=== PATIENT | male | born 1965 | race Caucasian/White ===

== ENCOUNTER 2017-08-20 19:51 | Inpatient (IN) | payer OTHER ==
[~2017-08-20] VITALS: Ht 157.5 cm; Wt 63.0 kg
[2017-08-20 19:52] VITALS: O2SAT 95
[2017-08-20] MEDS ORDERED: IOHEXOL 350 MG/ML 10 ML VIAL (for RAD DIAG) IVCONTRAST ONE (19:52)
[2017-08-20] MEDS ORDERED: DIPHTH/TETANUS/ACEL PERTUSSIS (BOOSTER) 0.5 ML VIAL/PFS IM ONE (19:54)
[2017-08-20] MEDS ORDERED: MORPHINE SULFATE 4 MG/ML INJ ONE (19:57)
[2017-08-20] MEDS ORDERED: ONDANSETRON HCL 4 MG/2 ML VIAL ONE (19:57)
[2017-08-20] MEDS ORDERED: ceFAZolin 2 GM PREMIX 50 ML ONE (19:57)
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
[2017-08-20 20:14] LABS: AUTOMATED NEUTROPHIL # 11.1 TH/MM3 (1.8-7.7); BASOPHIL # 0.1 TH/MM3 (0-0.2); BASOPHIL % 0.6 % (0.0-2.0); EOSINOPHIL # 0.4 TH/MM3 (0-0.4); EOSINOPHIL % 2.7 % (0.0-4.0); HEMATOCRIT 45.4 % (39.0-51.0); HEMOGLOBIN 15.9 GM/DL (13.0-17.0); LYMPH % 23.8 % (9.0-44.0); LYMPHOCYTE # 3.9 TH/MM3 (1.0-4.8); MEAN CELL VOLUME 95.2 FL (80.0-100.0); MEAN CORPUSCULAR HEMOGLOBIN 33.4 PG (27.0-34.0); MEAN CORPUSCULAR HGB CONC 35.1 % (32.0-36.0); MEAN PLATELET VOLUME 7.8 FL (7.0-11.0); MONO % 4.7 % (0.0-8.0); MONOCYTE # 0.8 TH/MM3 (0-0.9); NEUT % 68.2 % (16.0-70.0); PLATELET COUNT 320 TH/MM3 (150-450); RED BLOOD COUNT 4.77 MIL/MM3 (4.50-5.90); WHITE BLOOD COUNT 16.2 TH/MM3 (4.0-11.0)
[2017-08-20 20:24] LABS: PROTHROMBIN TIME - PATIENT 10.4 SEC (9.8-11.6)
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
[2017-08-20 20:57] VITALS: O2SAT 98
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
[2017-08-20 21:23] VITALS: BP 137/78; PULSE 81; RESP 18; O2SAT 99
[2017-08-20 21:35] VITALS: BP 131/76; PULSE 81; RESP 18; O2SAT 97
[2017-08-20] MEDS ORDERED: LIDOCAINE 1%/EPINEPHrine 1:100,000 SOLN 50 ML VIAL ONE (21:50)
[2017-08-20] MEDS ORDERED: ONDANSETRON HCL 4 MG/2 ML VIAL IV PUSH PRN (22:00)
[2017-08-20] MEDS ORDERED: SODIUM CHLORIDE 0.9% FLUSH 10 ML FLUSH IV FLUSH PRN (22:00)
[2017-08-20] MEDS ORDERED: ACETAMINOPHEN 500 MG CPLT PO PRN (22:00)
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
[2017-08-20] MEDS ORDERED: AMPICILLIN-SULBACTAM INJ 3 GM in SODIUM CHLORIDE 0.9% INJ 100 ML IV ONE (22:45)
--- NOTE | 2017-08-20 22:52 | PD ---
Physical Exam Time Seen by Provider: 21:50 Data Data Last Documented VS Vital Signs Date Time Temp Pulse Resp B/P (MAP) Pulse Ox O2 Delivery O2 Flow Rate FiO2 08/20/17 21:35 81 18 131/76 (94) 97 Nasal Cannula 4.00 Orders Orders [id number] (Booster) Inj (Boostrix (08/20/17 19:54) Morphine Inj (Morphine Inj) (08/20/17 19:57) Cefazolin 2 Gm Premix (Ancef 2 Gm Premix (08/20/17 19:57) Ondansetron Inj (Zofran Inj) (08/20/17 19:57) I-Stat Profile (08/20/17 20:01) I-Stat Creatinine (08/20/17 20:01) Complete Blood Count With Diff (08/20/17 20:01) Prothrombin Time / Inr (Pt) (08/20/17 20:01) Act Partial Throm Time (Ptt) (08/20/17 20:01) Type And Screen (08/20/17 20:01) Alcohol (Ethanol) (08/20/17 20:01) Chest, Single Ap (08/20/17 20:01) Pelvis, Ap Only (Routine) (08/20/17 20:01) Ct Brain W/O Iv Contrast(Rout) (08/20/17 20:01) Ct Cerv Spine W/O Contrast (08/20/17 20:01) Ct Abd/Pel W Iv Contrast(Rout) (08/20/17 20:01) Ct Thorax/ Chest W Iv Contrast (08/20/17 20:01) Iv Access Insert/Monitor (08/20/17 20:01) Ecg Monitoring (08/20/17 20:01) Oximetry (08/20/17 20:01) Oxygen Administration (08/20/17 20:01) Finger (Paj5asa) (08/20/17 ) Shoulder, One View (08/20/17 ) Iohexol 350 Inj (Omnipaque 350 Inj) (08/20/17 19:52) Ct Facial Bones W/O Iv Cont (08/20/17 ) Complete Blood Count With Diff (08/21/17 00:00) Splinting (08/20/17 ) Consult Scientific Aide (08/20/17 ) Consult Orthopedic (08/20/17 ) Admit Order (Ed Use Only) (08/20/17 21:47) Labs Laboratory Tests Test 08/20/17 19:55 White Blood Count 16.2 TH/MM3 Red Blood Count 4.77 MIL/MM3 Hemoglobin 15.9 GM/DL Bedside Hemoglobin 15.6 G/DL Hematocrit 45.4 % Bedside Hematocrit 46.0 % Mean Corpuscular Volume 95.2 FL Mean Corpuscular Hemoglobin 33.4 PG Mean Corpuscular Hemoglobin Concent 35.1 % Red Cell Distribution Width 13.0 % Platelet Count 320 TH/MM3 Mean Platelet Volume 7.8 FL Neutrophils (%) (Auto) 68.2 % Lymphocytes (%) (Auto) 23.8 % Monocytes (%) (Auto) 4.7 % Eosinophils (%) (Auto) 2.7 % Basophils (%) (Auto) 0.6 % Neutrophils # (Auto) 11.1 TH/MM3 Lymphocytes # (Auto) 3.9 TH/MM3 Monocytes # (Auto) 0.8 TH/MM3 Eosinophils # (Auto) 0.4 TH/MM3 Basophils # (Auto) 0.1 TH/MM3 CBC Comment DIFF FINAL Differential Comment Prothrombin Time 10.4 SEC Prothromb Time International Ratio 1.0 RATIO Activated Partial Thromboplast Time 26.6 SEC Bedside Sodium 138 MMOL/L Bedside Potassium 4.4 MMOL/L Bedside Chloride 101 MMOL/L Bedside Blood Urea Nitrogen 26 MG/DL Bedside Creatinine 1.2 MG/DL Bedside Glucose 105 MG/DL Ethyl Alcohol Level 230 MG/DL [facility] Medical Record Reviewed: Yes Supervised Visit with CORI: Yes Narrative Course I was asked by Dr. Dukes to repair a laceration on this patient. Please see his note for further details. Procedures Procedure Narrative LACERATION LOCATION: Forehead LENGTH: 4 cm NUMBER OF STITCHES/MERNA: 5 buried, 15 simple are up-to-date REPAIR: The area of the laceration was prepped with Betadine and sterilely draped. The laceration was infiltrated with 1% lidocaine with epinephrine. The wound was copiously irrigated and explored without evidence of foreign body , tendon injury or neurovascular injury. The wound was closed using 5-0 Vicryl and 4-0 Prolene. This was a double layer repair. A sterile dressing was applied. The patient was advised to keep the dressing clean and dry. Patient tolerated the procedure well. Diagnosis Primary Impression: Multiple pelvic fractures Qualified Codes: S32.82XA - Multiple fractures of pelvis without disruption of pelvic ring, initial encounter for closed fracture Additional Impressions: Multiple facial bone fractures Qualified Codes: S02.92XA - Unspecified fracture of facial bones, initial encounter for closed fracture Spleen hematoma Qualified Codes: S36.029A - Unspecified contusion of spleen, initial encounter Laceration of forehead Qualified Codes: S01.81XA - Laceration without foreign body of other part of head, initial encounter Scripts No Active Prescriptions or Reported Meds Condition: Stable Mirlande Mitchell Aug 20, 2017 22:52
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
[2017-08-20] MEDS: SODIUM CHLORIDE 0.9% FLUSH 10 ML FLUSH IV FLUSH SCH (23:40)
[2017-08-20] MEDS: SODIUM CHLOR 0.9% 1000 ML INJ 1,000 ML IV SCH (23:40)
[2017-08-21] VITALS (19 sets, daily range): BP systolic 61–140; BP diastolic 42–92; PULSE 77–99; RESP 14–20; TEMP 94.4–99.6; O2SAT 92–100
[2017-08-21] MEDS ORDERED: ONDANSETRON HCL 4 MG/2 ML VIAL IV PUSH PRN (00:15)
[2017-08-21] MEDS ORDERED: MISCELLANEOUS NURSING INFORMATION XX SCH (00:15)
[2017-08-21] MEDS ORDERED: SENNOSIDES 8.6 MG TAB PO PRN (00:15)
[2017-08-21] MEDS ORDERED: SODIUM CHLORIDE 0.9% FLUSH 10 ML FLUSH IV FLUSH PRN (00:15)
[2017-08-21] MEDS ORDERED: MAGNESIUM HYDROXIDE SUSP 30 ML CUP PO PRN (00:15)
[2017-08-21] MEDS ORDERED: PHENYLEPHRINE INJ 160 MG in DEXTROSE 5% IN WATE 500 ML INJ 484 ML IV PRN ×2 (00:15)
[2017-08-21] MEDS ORDERED: CHLORHEXIDINE GLUCONATE 2 % 1 PACK (2 CLOTHS) TOP PRN (00:15)
[2017-08-21] MEDS ORDERED: BISACODYL 10 MG SUPP RECTAL PRN (00:15)
[2017-08-21] MEDS ORDERED: TERBUTALINE INJ 1 MG/ML AMP SQ PRN (00:15)
[2017-08-21] MEDS ORDERED: LACTULOSE SYRUP 20 GM/30 ML CUP PO PRN (00:15)
[2017-08-21] MEDS ORDERED: SODIUM CHLOR 0.9% 1000 ML INJ 1,000 ML IV ONE (00:15)
[2017-08-21 00:37] LABS: AUTOMATED NEUTROPHIL # 25.5 TH/MM3 (1.8-7.7); BASOPHIL # 0.1 TH/MM3 (0-0.2); BASOPHIL % 0.3 % (0.0-2.0); EOSINOPHIL # 0.1 TH/MM3 (0-0.4); EOSINOPHIL % 0.3 % (0.0-4.0); HEMATOCRIT 40.3 % (39.0-51.0); HEMOGLOBIN 13.7 GM/DL (13.0-17.0); LYMPH % 6.7 % (9.0-44.0); LYMPHOCYTE # 1.9 TH/MM3 (1.0-4.8); MEAN CELL VOLUME 96.7 FL (80.0-100.0); MEAN CORPUSCULAR HGB CONC 34.1 % (32.0-36.0); MEAN PLATELET VOLUME 7.5 FL (7.0-11.0); MONO % 3.8 % (0.0-8.0); MONOCYTE # 1.1 TH/MM3 (0-0.9); NEUT % 88.9 % (16.0-70.0); PLATELET COUNT 305 TH/MM3 (150-450); RED BLOOD COUNT 4.17 MIL/MM3 (4.50-5.90); RED CELL DISTRIBUTION WIDTH 13.1 % (11.6-17.2); WHITE BLOOD COUNT 28.7 TH/MM3 (4.0-11.0)
[2017-08-21 00:49] LABS: INTERNATIONAL NORMALIZED RATIO 1.1 RATIO
[2017-08-21] MEDS ORDERED: HEPARIN SODIUM - SQ 10,000 UNITS/ML VIAL ONE (01:30)
[2017-08-21 02:19] LABS: HEMATOCRIT 37.6 % (39.0-51.0); HEMOGLOBIN 12.6 GM/DL (13.0-17.0); MEAN CELL VOLUME 93.7 FL (80.0-100.0); MEAN CORPUSCULAR HEMOGLOBIN 31.4 PG (27.0-34.0); MEAN CORPUSCULAR HGB CONC 33.5 % (32.0-36.0); MEAN PLATELET VOLUME 7.2 FL (7.0-11.0); PLATELET COUNT 186 TH/MM3 (150-450); RED BLOOD COUNT 4.01 MIL/MM3 (4.50-5.90); RED CELL DISTRIBUTION WIDTH 14.7 % (11.6-17.2); WHITE BLOOD COUNT 19.7 TH/MM3 (4.0-11.0)
[2017-08-21] MEDS ORDERED: CALCIUM CHLORIDE 10% SOLN 1 GRAM/10 ML SYR ONE (02:24)
[2017-08-21 02:29] LABS: INTERNATIONAL NORMALIZED RATIO 1.2 RATIO; PROTHROMBIN TIME - PATIENT 11.7 SEC (9.8-11.6)
[2017-08-21] MEDS ORDERED: fentaNYL DRIP 250 ML IV PRN (03:15)
[2017-08-21] MEDS ORDERED: PROPOFOL 1000 MG/100 ML INJ 100 ML IV PRN (03:15)
[2017-08-21] MEDS ORDERED: DEXMEDETOMIDINE INJ 200 MCG in SODIUM CHLORIDE 0.9% INJ 50 ML IV PRN (03:15)
[2017-08-21] MEDS: CHLORHEXIDINE GLUCONATE 2 % 1 PACK (2 CLOTHS) TOP SCH (04:00)
[2017-08-21] MEDS ORDERED: SODIUM BICARBONATE 8.4% INJ 50 MEQ/50 ML SYR IV PUSH ONE (04:15)
[2017-08-21] MEDS: SODIUM CHLOR 0.9% 1000 ML INJ 1,000 ML IV SCH ×2 (05:59→15:15)
[2017-08-21 06:12] LABS: HEMATOCRIT 40.1 % (39.0-51.0); HEMOGLOBIN 14.1 GM/DL (13.0-17.0); MEAN CELL VOLUME 91.3 FL (80.0-100.0); MEAN PLATELET VOLUME 7.4 FL (7.0-11.0); PLATELET COUNT 184 TH/MM3 (150-450); RED CELL DISTRIBUTION WIDTH 14.8 % (11.6-17.2); WHITE BLOOD COUNT 18.4 TH/MM3 (4.0-11.0)
[2017-08-21 06:45] LABS: INTERNATIONAL NORMALIZED RATIO 1.1 RATIO; PROTHROMBIN TIME - PATIENT 10.8 SEC (9.8-11.6)
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
[2017-08-21] MEDS: CHLORHEXIDINE 0.12% (ORAL KIT) 15 ML CUP MT SCH ×2 (08:00→19:44)
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
[2017-08-21] MEDS: DOCUSATE SODIUM 50 MG/SENNA 8.6 MG TAB PO SCH ×2 (09:00→19:43)
[2017-08-21] MEDS: ARTIFICIAL TEARS OPTH SOLN 15 ML BTL EACH EYE SCH (09:00)
[2017-08-21] MEDS: SODIUM CHLORIDE 0.9% FLUSH 10 ML FLUSH IV FLUSH SCH ×3 (09:00→19:44)
[2017-08-21] MEDS: MUPIROCIN 2% OINT 1 APPLIC/GM SYR EACH NARE SCH ×2 (09:00→19:42)
[2017-08-21] MEDS: MULTIVITAMIN INJ 10 ML, THIAMINE INJ 100 MG, FOLIC ACID INJ 1 MG in SODIUM CHLORID 0.9%... IV SCH (10:06)
[2017-08-21] MEDS: FAMOTIDINE 20 MG/2 ML VIAL IV PUSH SCH ×2 (10:07→19:42)
[2017-08-21] MEDS ORDERED: PHENYLEPH/NS 1000 MCG/10 ML SYR IV ONE (12:00)
[2017-08-21] MEDS ORDERED: SODIUM CHLORID 0.9% 500 ML INJ 1,000 ML IV ONE (12:00)
[2017-08-21] MEDS ORDERED: ePHEDrine/NS 25 MG/5 ML SYRINGE IV ONE (12:00)
[2017-08-21] MEDS ORDERED: ROCURONIUM INJ 50 MG/5 ML SYRINGE IV PUSH ONE (12:00)
[2017-08-21] MEDS ORDERED: NORMOSOL R INJ 2,000 ML IV ONE (12:00)
[2017-08-21] MEDS ORDERED: SUCCINYLCHOLINE CHLORIDE 100 MG/5 ML SYRINGE IV PUSH ONE (12:00)
[2017-08-21] MEDS ORDERED: PROPOFOL 200 MG/20 ML AMP IV ONE (12:00)
[2017-08-21] MEDS ORDERED: LIDOCAINE HCL 1% PF 5 ML SYRINGE OTHER ONE (12:00)
[2017-08-21] MEDS: MORPHINE SULFATE 2 MG/ML INJ IV PUSH PRN ×3 (12:01→19:44)
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
[2017-08-21 12:50] LABS: HEMATOCRIT 41.1 % (39.0-51.0); HEMOGLOBIN 14.3 GM/DL (13.0-17.0); MEAN CELL VOLUME 91.7 FL (80.0-100.0); MEAN CORPUSCULAR HEMOGLOBIN 31.8 PG (27.0-34.0); MEAN CORPUSCULAR HGB CONC 34.7 % (32.0-36.0); MEAN PLATELET VOLUME 7.6 FL (7.0-11.0); PLATELET COUNT 187 TH/MM3 (150-450); RED BLOOD COUNT 4.48 MIL/MM3 (4.50-5.90); RED CELL DISTRIBUTION WIDTH 14.8 % (11.6-17.2); WHITE BLOOD COUNT 16.4 TH/MM3 (4.0-11.0)
[2017-08-21] MEDS: ACETAMINOPHEN/HYDROcodone 325 MG/7.5 MG TAB PO PRN ×2 (13:45→19:43)
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
[2017-08-21] MEDS: BACITRACIN TOP OINT 15 GM TUBE TOPICAL PRN (16:45)
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
[2017-08-22] VITALS (15 sets, daily range): BP systolic 123–144; BP diastolic 78–90; PULSE 92–108; RESP 16–20; TEMP 98.5–99.4; O2SAT 89–95
[2017-08-22] MEDS: ACETAMINOPHEN/HYDROcodone 325 MG/7.5 MG TAB PO PRN ×3 (00:40→13:27)
[2017-08-22] MEDS: MORPHINE SULFATE 2 MG/ML INJ IV PUSH PRN ×4 (00:41→21:06)
[2017-08-22] MEDS: SODIUM CHLOR 0.9% 1000 ML INJ 1,000 ML IV SCH ×2 (03:55→11:04)
[2017-08-22] MEDS: CHLORHEXIDINE GLUCONATE 2 % 1 PACK (2 CLOTHS) TOP SCH (04:00)
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
[2017-08-22 07:05] LABS: AUTOMATED NEUTROPHIL # 19.1 TH/MM3 (1.8-7.7); BASOPHIL # 0.2 TH/MM3 (0-0.2); BASOPHIL % 0.7 % (0.0-2.0); EOSINOPHIL # 0.3 TH/MM3 (0-0.4); EOSINOPHIL % 1.2 % (0.0-4.0); HEMATOCRIT 41.3 % (39.0-51.0); HEMOGLOBIN 14.5 GM/DL (13.0-17.0); LYMPH % 5.6 % (9.0-44.0); LYMPHOCYTE # 1.3 TH/MM3 (1.0-4.8); MEAN CELL VOLUME 92.5 FL (80.0-100.0); MEAN CORPUSCULAR HEMOGLOBIN 32.5 PG (27.0-34.0); MEAN CORPUSCULAR HGB CONC 35.2 % (32.0-36.0); MEAN PLATELET VOLUME 8.2 FL (7.0-11.0); MONO % 6.8 % (0.0-8.0); MONOCYTE # 1.5 TH/MM3 (0-0.9); NEUT % 85.7 % (16.0-70.0); PLATELET COUNT 198 TH/MM3 (150-450); RED BLOOD COUNT 4.46 MIL/MM3 (4.50-5.90); RED CELL DISTRIBUTION WIDTH 14.8 % (11.6-17.2); WHITE BLOOD COUNT 22.3 TH/MM3 (4.0-11.0)
[2017-08-22 07:32] LABS: ALBUMIN 2.5 GM/DL (3.4-5.0); ALT (GPT) 29 U/L (12-78); AST (GOT) 32 U/L (15-37); BICARBONATE 25.8 MEQ/L (21.0-32.0); BLOOD UREA NITROGEN 13 MG/DL (7-18); CHLORIDE 106 MEQ/L (98-107); CREATININE 0.73 MG/DL (0.60-1.30); GLOMERULAR FILTRATION RATE 113 ML/MIN (>89); GLUCOSE,RANDOM 94 MG/DL (74-106); SODIUM (NA) 139 MEQ/L (136-145)
[2017-08-22 07:34] LABS: ALKALINE PHOSPHATASE 78 U/L (45-117); TOTAL BILIRUBIN ADULT 0.7 MG/DL (0.2-1.0)
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
[2017-08-22] MEDS: CHLORHEXIDINE 0.12% (ORAL KIT) 15 ML CUP MT SCH ×2 (08:00→20:00)
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
[2017-08-22] MEDS: ARTIFICIAL TEARS OPTH SOLN 15 ML BTL EACH EYE SCH ×3 (09:00→17:23)
[2017-08-22] MEDS: FAMOTIDINE 20 MG/2 ML VIAL IV PUSH SCH ×2 (09:12→21:04)
[2017-08-22] MEDS: DOCUSATE SODIUM 50 MG/SENNA 8.6 MG TAB PO SCH ×2 (09:12→21:04)
[2017-08-22] MEDS: MULTIVITAMIN INJ 10 ML, THIAMINE INJ 100 MG, FOLIC ACID INJ 1 MG in SODIUM CHLORID 0.9%... IV SCH (09:12)
[2017-08-22] MEDS: MUPIROCIN 2% OINT 1 APPLIC/GM SYR EACH NARE SCH ×2 (09:12→21:04)
[2017-08-22] MEDS: SODIUM CHLORIDE 0.9% FLUSH 10 ML FLUSH IV FLUSH SCH ×3 (09:13→21:04)
[2017-08-22] MEDS ORDERED: FUROSEMIDE 40 MG/4 ML VIAL IV PUSH ONE (09:45)
[2017-08-22] MEDS: LIDOCAINE HCL 5% PATCH T-DERMAL SCH (09:47)
[2017-08-22] MEDS: METHOCARBAMOL 500 MG TAB PO SCH ×3 (09:48→21:04)
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
--- NOTE | 2017-08-22 20:38 | MP ---
cc: ABIGAIL MORRIS DATE OF SURGERY 08/21/17 PREOPERATIVE DIAGNOSIS Splenic rupture POSTOPERATIVE DIAGNOSIS Splenic rupture PROCEDURE Exploratory laparotomy and splenectomy. SURGEON Emma Morris MD ANESTHESIA General endotracheal anesthesia. ESTIMATED BLOOD LOSS 250 mL FINDINGS Hemoperitoneum, approximately a liter of clotted blood within the abdominal cavity in the left upper quadrant. SPECIMEN Spleen COMPLICATIONS None PROCEDURE IN DETAIL The patient was brought to the operating room, placed on operating table in supine position. Bilateral sequential inflation device placed on lower extremities. General anesthesia instituted. An A-line and central line placed by anesthesia. The abdomen was prepped and draped sterilely. A midline incision was made from the xiphoid to just below the umbilicus, was taken through the subcutaneous tissue. The peritoneal cavity was entered. The upper abdomen was packed with lap pads. Attention focused on the left upper quadrant. The blood was removed from the abdominal cavity. The spleen was brought into view. The short gastrics were taken using the harmonic scalpel. The pancreatic tail was densely adhered to the spleen. This was taken down using blunt dissection. The inferior splenic vessels were divided between right angles and ligated with 2-0 Vicryls. The splenic vessels were dissected. They were divided between right angles and ligated with 2-0 Vicryl sutures. The ligamentous attachments to the spleen were taken using the Bovie. The spleen was removed from the peritoneal cavity. The pancreatic tail was inspected. No evidence of leak, no evidence f bleeding. The stomach was inspected. No evidence of bleeding. The ligament of Treitz was identified. The small bowel was inspected to the terminal the cecum. No evidence of bowel injury. No evidence of colonic injury. The abdominal cavity was then irrigated with 2 liters of saline. The fascia was then approximated in the midline with #1 loop PDS. The skin edges were approximated with katelyn. The abdominal wall was cleaned and sterile dressing placed. All instruments and sponge counts were reported as correct at the end of the procedure. MD ELAN Lepe/ /2:42 AM /8:03 PM
[2017-08-22] MEDS: REMOVE OLD PATCH T-DERMAL SCH (21:00)
[2017-08-23] VITALS (13 sets, daily range): BP systolic 123–142; BP diastolic 77–82; PULSE 89–103; RESP 16–21; TEMP 98.9–99.5; O2SAT 4–97
[2017-08-23] MEDS: MORPHINE SULFATE 2 MG/ML INJ IV PUSH PRN ×4 (00:21→21:01)
[2017-08-23] MEDS: ACETAMINOPHEN/HYDROcodone 325 MG/7.5 MG TAB PO PRN ×4 (00:21→20:59)
[2017-08-23] MEDS: CHLORHEXIDINE GLUCONATE 2 % 1 PACK (2 CLOTHS) TOP SCH (04:00)
[2017-08-23] MEDS: METHOCARBAMOL 500 MG TAB PO SCH ×3 (04:22→21:46)
[2017-08-23 04:58] LABS: AUTOMATED NEUTROPHIL # 18.3 TH/MM3 (1.8-7.7); BASOPHIL # 0.1 TH/MM3 (0-0.2); BASOPHIL % 0.7 % (0.0-2.0); EOSINOPHIL # 0.4 TH/MM3 (0-0.4); EOSINOPHIL % 1.9 % (0.0-4.0); HEMOGLOBIN 14.6 GM/DL (13.0-17.0); LYMPH % 4.6 % (9.0-44.0); MEAN CELL VOLUME 92.5 FL (80.0-100.0); MEAN CORPUSCULAR HEMOGLOBIN 32.2 PG (27.0-34.0); MEAN CORPUSCULAR HGB CONC 34.9 % (32.0-36.0); MEAN PLATELET VOLUME 8.2 FL (7.0-11.0); MONO % 5.8 % (0.0-8.0); MONOCYTE # 1.2 TH/MM3 (0-0.9); PLATELET COUNT 205 TH/MM3 (150-450); RED BLOOD COUNT 4.55 MIL/MM3 (4.50-5.90); RED CELL DISTRIBUTION WIDTH 14.2 % (11.6-17.2)
[2017-08-23 06:04] LABS: ALBUMIN 2.4 GM/DL (3.4-5.0); AST (GOT) 31 U/L (15-37); BICARBONATE 24.7 MEQ/L (21.0-32.0); BLOOD UREA NITROGEN 14 MG/DL (7-18); CALCIUM 8.3 MG/DL (8.5-10.1); CHLORIDE 101 MEQ/L (98-107); CREATININE 0.76 MG/DL (0.60-1.30); GLOMERULAR FILTRATION RATE 108 ML/MIN (>89); GLUCOSE,RANDOM 88 MG/DL (74-106); SODIUM (NA) 134 MEQ/L (136-145)
[2017-08-23 06:05] LABS: ALT (GPT) 26 U/L (12-78)
[2017-08-23 06:07] LABS: ALKALINE PHOSPHATASE 72 U/L (45-117); TOTAL BILIRUBIN ADULT 0.7 MG/DL (0.2-1.0); TOTAL PROTEIN 6.3 GM/DL (6.4-8.2)
--- NOTE | 2017-08-23 06:19 | RADRPT ---
EXAM DATE/TIME: 08/23/2017 04:06 [facility] COMPARISON: CHEST SINGLE AP, August 22, 2017, 4:08. INDICATIONS : Follow up post trauma alert. MEDICAL HISTORY : Unobtainable SURGICAL HISTORY : Unobtainable ENCOUNTER: Subsequent ACUITY: 3 days PAIN SCORE: Non-responsive. LOCATION: Bilateral chest FINDINGS: There is slight atelectasis or contusion in the lung bases. Aeration is generally improved from the p revious exam, however. Hilar and mediastinal poncho calcifications are again noted. Mediastinal contou rs are satisfactory. CONCLUSION: Improved aeration with no new acute findings. Levi Linton MD on August 23, 2017 at 6:16 Board Certified Radiologist. This report was verified electronically.
[2017-08-23] MEDS: CHLORHEXIDINE 0.12% (ORAL KIT) 15 ML CUP MT SCH ×2 (08:00→20:00)
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
[2017-08-23] MEDS: MULTIVITAMIN INJ 10 ML, THIAMINE INJ 100 MG, FOLIC ACID INJ 1 MG in SODIUM CHLORID 0.9%... IV SCH (09:00)
[2017-08-23] MEDS: ARTIFICIAL TEARS OPTH SOLN 15 ML BTL EACH EYE SCH ×3 (09:00→18:00)
[2017-08-23] MEDS: SODIUM CHLORIDE 0.9% FLUSH 10 ML FLUSH IV FLUSH SCH ×2 (09:00→21:00)
[2017-08-23] MEDS: DOCUSATE SODIUM 50 MG/SENNA 8.6 MG TAB PO SCH ×2 (09:14→21:00)
[2017-08-23] MEDS: LIDOCAINE HCL 5% PATCH T-DERMAL SCH (09:14)
[2017-08-23] MEDS: FAMOTIDINE 20 MG TAB PO SCH ×2 (09:14→21:00)
[2017-08-23] MEDS: MUPIROCIN 2% OINT 1 APPLIC/GM SYR EACH NARE SCH ×2 (09:15→21:01)
[2017-08-23] MEDS: fentaNYL 50 MCG/HR PATCH T-DERMAL SCH (10:00)
[2017-08-23] MEDS: SODIUM CHLOR 0.9% 1000 ML INJ 1,000 ML IV SCH (11:34)
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
[2017-08-23] MEDS: RESP: ALBUTEROL 2.5 MG/3 ML NEB (PRN) INH (20:54)
[2017-08-23] MEDS: REMOVE OLD PATCH T-DERMAL SCH (21:00)
[2017-08-24] VITALS (13 sets, daily range): BP systolic 120–146; BP diastolic 71–91; PULSE 90–103; RESP 14–20; TEMP 98.2–98.9; O2SAT 91–95
[2017-08-24] MEDS: MORPHINE SULFATE 2 MG/ML INJ IV PUSH PRN ×3 (01:01→09:32)
[2017-08-24] MEDS: ACETAMINOPHEN/HYDROcodone 325 MG/7.5 MG TAB PO PRN ×5 (01:02→21:16)
[2017-08-24] MEDS: CHLORHEXIDINE GLUCONATE 2 % 1 PACK (2 CLOTHS) TOP SCH (03:24)
[2017-08-24 05:17] LABS: ALBUMIN 2.3 GM/DL (3.4-5.0); AST (GOT) 24 U/L (15-37); AUTOMATED NEUTROPHIL # 20.5 TH/MM3 (1.8-7.7); BASOPHIL # 0.1 TH/MM3 (0-0.2); BASOPHIL % 0.5 % (0.0-2.0); BLOOD UREA NITROGEN 13 MG/DL (7-18); CALCIUM 8.6 MG/DL (8.5-10.1); CHLORIDE 99 MEQ/L (98-107); CREATININE 0.68 MG/DL (0.60-1.30); EOSINOPHIL # 0.6 TH/MM3 (0-0.4); EOSINOPHIL % 2.7 % (0.0-4.0); GLOMERULAR FILTRATION RATE 122 ML/MIN (>89); GLUCOSE,RANDOM 113 MG/DL (74-106); HEMOGLOBIN 14.3 GM/DL (13.0-17.0); LYMPH % 3.8 % (9.0-44.0); LYMPHOCYTE # 0.9 TH/MM3 (1.0-4.8); MEAN CELL VOLUME 92.8 FL (80.0-100.0); MEAN CORPUSCULAR HEMOGLOBIN 32.3 PG (27.0-34.0); MEAN CORPUSCULAR HGB CONC 34.8 % (32.0-36.0); MEAN PLATELET VOLUME 8.6 FL (7.0-11.0); MONO % 6.1 % (0.0-8.0); MONOCYTE # 1.4 TH/MM3 (0-0.9); NEUT % 86.9 % (16.0-70.0); PLATELET COUNT 251 TH/MM3 (150-450); RED BLOOD COUNT 4.42 MIL/MM3 (4.50-5.90); SODIUM (NA) 134 MEQ/L (136-145); WHITE BLOOD COUNT 23.6 TH/MM3 (4.0-11.0)
[2017-08-24 05:22] LABS: ALKALINE PHOSPHATASE 71 U/L (45-117); ALT (GPT) 23 U/L (12-78); TOTAL BILIRUBIN ADULT 0.6 MG/DL (0.2-1.0); TOTAL PROTEIN 6.3 GM/DL (6.4-8.2)
[2017-08-24] MEDS: METHOCARBAMOL 500 MG TAB PO SCH ×3 (05:40→21:21)
--- NOTE | 2017-08-24 06:16 | RADRPT ---
EXAM DATE/TIME: 08/24/2017 03:41 [facility] COMPARISON: CHEST SINGLE AP, August 23, 2017, 4:06. INDICATIONS : Follow up post trauma alert. MEDICAL HISTORY : Unobtainable SURGICAL HISTORY : Unobtainable ENCOUNTER: Subsequent ACUITY: 4 - 6 days PAIN SCORE: Non-responsive. LOCATION: Bilateral chest FINDINGS: Slight interval worsening in perihilar and basilar infiltrates. Cardiac contours are grossly stable. CONCLUSION: Slight interval worsening in aeration. Levi Linton MD on August 24, 2017 at 6:14 Board Certified Radiologist. This report was verified electronically.
[2017-08-24] MEDS: CHLORHEXIDINE 0.12% (ORAL KIT) 15 ML CUP MT SCH (08:00)
[2017-08-24] MEDS: RESP: ALBUTEROL 2.5 MG/3 ML NEB (PRN) INH (08:26)
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
[2017-08-24] MEDS: SODIUM CHLORIDE 0.9% FLUSH 10 ML FLUSH IV FLUSH SCH ×2 (09:00→21:22)
[2017-08-24] MEDS: MUPIROCIN 2% OINT 1 APPLIC/GM SYR EACH NARE SCH ×2 (09:00→21:17)
[2017-08-24] MEDS: LACTULOSE SYRUP 20 GM/30 ML CUP PO SCH ×2 (09:00→09:32)
[2017-08-24] MEDS: ARTIFICIAL TEARS OPTH SOLN 15 ML BTL EACH EYE SCH ×3 (09:00→18:16)
[2017-08-24] MEDS: FAMOTIDINE 20 MG TAB PO SCH ×2 (09:32→21:16)
[2017-08-24] MEDS: MAGNESIUM HYDROXIDE SUSP 30 ML CUP PO SCH ×2 (09:32→21:00)
[2017-08-24] MEDS: DOCUSATE SODIUM 50 MG/SENNA 8.6 MG TAB PO SCH ×2 (09:32→21:16)
[2017-08-24] MEDS: LIDOCAINE HCL 5% PATCH T-DERMAL SCH (09:33)
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
[2017-08-24] MEDS: AMOXICILLIN/CLAVULANATE K 500 MG TAB PO SCH ×2 (14:15→21:17)
[2017-08-24] MEDS: SODIUM CHLOR 0.9% 1000 ML INJ 1,000 ML IV SCH (20:20)
[2017-08-25] VITALS (7 sets, daily range): BP systolic 119–151; BP diastolic 74–99; PULSE 79–113; RESP 18–20; TEMP 97.5–98.5; O2SAT 94–98
[2017-08-25] MEDS: ACETAMINOPHEN/HYDROcodone 325 MG/7.5 MG TAB PO PRN ×5 (03:35→22:51)
[2017-08-25] MEDS: AMOXICILLIN/CLAVULANATE K 500 MG TAB PO SCH ×3 (05:30→23:36)
[2017-08-25] MEDS: METHOCARBAMOL 500 MG TAB PO SCH ×3 (05:31→22:41)
[2017-08-25 05:44] LABS: BASOPHIL # 0.1 TH/MM3 (0-0.2); BASOPHIL % 0.4 % (0.0-2.0); EOSINOPHIL # 0.4 TH/MM3 (0-0.4); EOSINOPHIL % 1.7 % (0.0-4.0); HEMATOCRIT 42.6 % (39.0-51.0); HEMOGLOBIN 14.6 GM/DL (13.0-17.0); LYMPH % 2.5 % (9.0-44.0); LYMPHOCYTE # 0.5 TH/MM3 (1.0-4.8); MEAN CELL VOLUME 92.6 FL (80.0-100.0); MEAN CORPUSCULAR HEMOGLOBIN 31.7 PG (27.0-34.0); MEAN CORPUSCULAR HGB CONC 34.2 % (32.0-36.0); MEAN PLATELET VOLUME 8.6 FL (7.0-11.0); MONO % 5.7 % (0.0-8.0); MONOCYTE # 1.2 TH/MM3 (0-0.9); NEUT % 89.7 % (16.0-70.0); PLATELET COUNT 280 TH/MM3 (150-450); RED CELL DISTRIBUTION WIDTH 13.8 % (11.6-17.2); WHITE BLOOD COUNT 21.1 TH/MM3 (4.0-11.0)
[2017-08-25 06:08] LABS: ALBUMIN 2.4 GM/DL (3.4-5.0); ALT (GPT) 17 U/L (12-78); AST (GOT) 24 U/L (15-37); BICARBONATE 29.7 MEQ/L (21.0-32.0); BLOOD UREA NITROGEN 16 MG/DL (7-18); CALCIUM 8.7 MG/DL (8.5-10.1); CHLORIDE 98 MEQ/L (98-107); CREATININE 0.75 MG/DL (0.60-1.30); GLOMERULAR FILTRATION RATE 109 ML/MIN (>89); GLUCOSE,RANDOM 133 MG/DL (74-106); SODIUM (NA) 134 MEQ/L (136-145)
[2017-08-25 06:09] LABS: ALKALINE PHOSPHATASE 74 U/L (45-117); TOTAL BILIRUBIN ADULT 0.5 MG/DL (0.2-1.0); TOTAL PROTEIN 6.6 GM/DL (6.4-8.2)
--- NOTE | 2017-08-25 06:15 | RADRPT ---
EXAM DATE/TIME: 08/25/2017 04:46 [facility] COMPARISON: CHEST SINGLE AP, August 24, 2017, 3:41. INDICATIONS : Short of breath. MEDICAL HISTORY : None. SURGICAL HISTORY : None. ENCOUNTER: Subsequent ACUITY: 4 - 6 days PAIN SCORE: 0/10 LOCATION: Bilateral chest FINDINGS: There is improvement in the aeration of the lungs with minimal atelectasis remaining in the right rosalva g base. Heart and mediastinum are unremarkable for technique. CONCLUSION: Significant improvement in the aeration of the lungs. Zakia Wing MD on August 25, 2017 at 6:13 Board Certified Radiologist. This report was verified electronically.
[2017-08-25] MEDS ORDERED: BISACODYL 10 MG SUPP RECTAL ONE (06:30)
[2017-08-25] MEDS ORDERED: BISACODYL EC 5 MG TABEC PO ONE (06:30)
[2017-08-25] MEDS: LIDOCAINE HCL 5% PATCH T-DERMAL SCH (08:41)
[2017-08-25] MEDS: LACTULOSE SYRUP 20 GM/30 ML CUP PO SCH (08:42)
[2017-08-25] MEDS: MAGNESIUM HYDROXIDE SUSP 30 ML CUP PO SCH ×2 (08:44→22:41)
[2017-08-25] MEDS: FAMOTIDINE 20 MG TAB PO SCH ×2 (08:44→22:41)
[2017-08-25] MEDS: DOCUSATE SODIUM 50 MG/SENNA 8.6 MG TAB PO SCH ×2 (08:44→22:41)
[2017-08-25] MEDS: SODIUM CHLORIDE 0.9% FLUSH 10 ML FLUSH IV FLUSH SCH ×2 (08:44→22:42)
[2017-08-25] MEDS: MUPIROCIN 2% OINT 1 APPLIC/GM SYR EACH NARE SCH ×2 (08:45→22:42)
[2017-08-25] MEDS: REMOVE OLD PATCH T-DERMAL SCH ×2 (08:45→21:00)
[2017-08-25] MEDS: ARTIFICIAL TEARS OPTH SOLN 15 ML BTL EACH EYE SCH ×3 (08:45→17:48)
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
[2017-08-25] MEDS: ENOXAPARIN SODIUM 40 MG/0.4 ML SYRINGE SQ SCH (12:45)
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
[2017-08-25] MEDS: SODIUM CHLOR 0.9% 1000 ML INJ 1,000 ML IV SCH (20:20)
[2017-08-26] VITALS (8 sets, daily range): BP systolic 118–144; BP diastolic 70–84; PULSE 85–94; RESP 18; TEMP 97.5–98.5; O2SAT 94–98
[2017-08-26] MEDS: AMOXICILLIN/CLAVULANATE K 500 MG TAB PO SCH ×3 (06:10→21:42)
[2017-08-26] MEDS: METHOCARBAMOL 500 MG TAB PO SCH ×3 (06:10→21:42)
[2017-08-26] MEDS: ACETAMINOPHEN/HYDROcodone 325 MG/7.5 MG TAB PO PRN ×3 (06:13→21:43)
[2017-08-26] MEDS: MAGNESIUM HYDROXIDE SUSP 30 ML CUP PO SCH ×2 (09:00→21:00)
[2017-08-26] MEDS: LACTULOSE SYRUP 20 GM/30 ML CUP PO SCH (09:00)
[2017-08-26] MEDS: SODIUM CHLORIDE 0.9% FLUSH 10 ML FLUSH IV FLUSH SCH ×2 (09:00→21:44)
[2017-08-26] MEDS: ARTIFICIAL TEARS OPTH SOLN 15 ML BTL EACH EYE SCH ×3 (09:00→18:00)
[2017-08-26] MEDS: DOCUSATE SODIUM 50 MG/SENNA 8.6 MG TAB PO SCH ×2 (09:00→21:42)
[2017-08-26] MEDS: REMOVE OLD DURAGESIC (FENTANYL) PATCH T-DERMAL SCH (10:00)
[2017-08-26] MEDS: MUPIROCIN 2% OINT 1 APPLIC/GM SYR EACH NARE SCH ×2 (10:09→21:00)
[2017-08-26] MEDS: FAMOTIDINE 20 MG TAB PO SCH ×2 (10:12→21:43)
[2017-08-26] MEDS: LIDOCAINE HCL 5% PATCH T-DERMAL SCH (10:13)
[2017-08-26] MEDS: fentaNYL 50 MCG/HR PATCH T-DERMAL SCH (10:14)
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
[2017-08-26] MEDS: ENOXAPARIN SODIUM 40 MG/0.4 ML SYRINGE SQ SCH (12:00)
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
[2017-08-26] MEDS ORDERED: ACETAMINOPHEN/HYDROcodone 325 MG/5 MG TAB PO PRN (12:15)
[2017-08-26] MEDS: BACITRACIN TOP OINT 15 GM TUBE TOPICAL PRN (13:25)
[2017-08-26] MEDS: REMOVE OLD PATCH T-DERMAL SCH (21:00)
[2017-08-27] VITALS (8 sets, daily range): BP systolic 115–155; BP diastolic 59–93; PULSE 86–101; RESP 18; TEMP 98–98.6; O2SAT 93–100
[2017-08-27] MEDS: METHOCARBAMOL 500 MG TAB PO SCH ×3 (05:29→21:25)
[2017-08-27] MEDS: AMOXICILLIN/CLAVULANATE K 500 MG TAB PO SCH ×3 (05:29→21:25)
[2017-08-27] MEDS: ACETAMINOPHEN/HYDROcodone 325 MG/7.5 MG TAB PO PRN ×3 (05:30→21:21)
[2017-08-27 05:51] LABS: AUTOMATED NEUTROPHIL # 14.1 TH/MM3 (1.8-7.7); BASOPHIL # 0.2 TH/MM3 (0-0.2); BASOPHIL % 1.1 % (0.0-2.0); EOSINOPHIL # 0.6 TH/MM3 (0-0.4); EOSINOPHIL % 3.3 % (0.0-4.0); HEMATOCRIT 43.7 % (39.0-51.0); HEMOGLOBIN 14.7 GM/DL (13.0-17.0); LYMPH % 10.2 % (9.0-44.0); LYMPHOCYTE # 1.8 TH/MM3 (1.0-4.8); MEAN CELL VOLUME 92.8 FL (80.0-100.0); MEAN CORPUSCULAR HEMOGLOBIN 31.1 PG (27.0-34.0); MEAN CORPUSCULAR HGB CONC 33.5 % (32.0-36.0); MEAN PLATELET VOLUME 8.4 FL (7.0-11.0); MONO % 6.7 % (0.0-8.0); MONOCYTE # 1.2 TH/MM3 (0-0.9); NEUT % 78.7 % (16.0-70.0); PLATELET COUNT 430 TH/MM3 (150-450); RED BLOOD COUNT 4.72 MIL/MM3 (4.50-5.90); WHITE BLOOD COUNT 17.9 TH/MM3 (4.0-11.0)
[2017-08-27 06:13] LABS: ALBUMIN 2.5 GM/DL (3.4-5.0); ALT (GPT) 23 U/L (12-78); AST (GOT) 27 U/L (15-37); BICARBONATE 26.5 MEQ/L (21.0-32.0); BLOOD UREA NITROGEN 22 MG/DL (7-18); CHLORIDE 100 MEQ/L (98-107); CREATININE 0.81 MG/DL (0.60-1.30); GLOMERULAR FILTRATION RATE 100 ML/MIN (>89); GLUCOSE,RANDOM 101 MG/DL (74-106); SODIUM (NA) 135 MEQ/L (136-145)
[2017-08-27 06:15] LABS: ALKALINE PHOSPHATASE 80 U/L (45-117); TOTAL BILIRUBIN ADULT 0.6 MG/DL (0.2-1.0)
--- NOTE | 2017-08-27 06:47 | RADRPT ---
EXAM DATE/TIME: 08/27/2017 06:16 [facility] COMPARISON: CHEST SINGLE AP, August 25, 2017, 4:46. INDICATIONS : Shortness of breath. MEDICAL HISTORY : None. SURGICAL HISTORY : None. ENCOUNTER: Subsequent ACUITY: 1 week PAIN SCORE: Non-responsive. LOCATION: Bilateral chest FINDINGS: The lungs are clear without infiltrate, nodule, or mass. There is no appreciable pleural effusion fo r technique. Heart and mediastinum are unremarkable. CONCLUSION: No acute cardiopulmonary disease. Zakia Wing MD on August 27, 2017 at 6:45 Board Certified Radiologist. This report was verified electronically.
[2017-08-27] MEDS: MUPIROCIN 2% OINT 1 APPLIC/GM SYR EACH NARE SCH ×2 (09:00→21:21)
[2017-08-27] MEDS: SODIUM CHLORIDE 0.9% FLUSH 10 ML FLUSH IV FLUSH SCH ×2 (09:00→21:21)
[2017-08-27] MEDS: ARTIFICIAL TEARS OPTH SOLN 15 ML BTL EACH EYE SCH ×3 (09:00→17:05)
[2017-08-27] MEDS: LACTULOSE SYRUP 20 GM/30 ML CUP PO SCH (09:00)
[2017-08-27] MEDS: MAGNESIUM HYDROXIDE SUSP 30 ML CUP PO SCH ×2 (09:00→21:20)
[2017-08-27] MEDS: DOCUSATE SODIUM 50 MG/SENNA 8.6 MG TAB PO SCH ×2 (09:00→21:21)
[2017-08-27] MEDS: FAMOTIDINE 20 MG TAB PO SCH ×2 (09:19→21:21)
[2017-08-27] MEDS: LIDOCAINE HCL 5% PATCH T-DERMAL SCH (09:19)
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
[2017-08-27] MEDS: ENOXAPARIN SODIUM 40 MG/0.4 ML SYRINGE SQ SCH (11:25)
[2017-08-27] MEDS ORDERED: HYDROmorphone HCL PF 2 MG/ML VIAL IV PUSH ONE (13:00)
[2017-08-27 16:47] LABS: BACTERIA, URINE OCC /hpf; BILIRUBIN, URINE NEG (NEG); BLOOD, URINE NEG (NEG); GLUCOSE,URINE NEG (NEG); KETONE, URINE NEG (NEG); NITRITE,URINE NEG (NEG); PH, URINE 6.5 (5.0-8.5); URINE COLOR YELLOW (YELLW/STRAW); URINE LEUKOCYTE ESTERASE SMALL (NEG)
[2017-08-27] MEDS: REMOVE OLD PATCH T-DERMAL SCH (21:00)
[2017-08-28] VITALS (7 sets, daily range): BP systolic 112–147; BP diastolic 68–81; PULSE 85–108; RESP 18–19; TEMP 97.4–98.3; O2SAT 94–97
[2017-08-28] MEDS ORDERED: HYDROmorphone HCL PF 2 MG/ML VIAL IV ONE (00:45)
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
[2017-08-28] MEDS: METHOCARBAMOL 500 MG TAB PO SCH ×3 (05:07→20:46)
[2017-08-28] MEDS: AMOXICILLIN/CLAVULANATE K 500 MG TAB PO SCH ×3 (05:07→20:46)
[2017-08-28] MEDS: ACETAMINOPHEN/HYDROcodone 325 MG/7.5 MG TAB PO PRN ×2 (05:08→09:41)
[2017-08-28] MEDS: LACTULOSE SYRUP 20 GM/30 ML CUP PO SCH (09:00)
[2017-08-28] MEDS: ARTIFICIAL TEARS OPTH SOLN 15 ML BTL EACH EYE SCH ×3 (09:00→17:26)
[2017-08-28] MEDS: SODIUM CHLORIDE 0.9% FLUSH 10 ML FLUSH IV FLUSH SCH ×2 (09:32→20:42)
[2017-08-28] MEDS: MUPIROCIN 2% OINT 1 APPLIC/GM SYR EACH NARE SCH ×2 (09:33→20:41)
[2017-08-28] MEDS: DOCUSATE SODIUM 50 MG/SENNA 8.6 MG TAB PO SCH ×2 (09:33→20:40)
[2017-08-28] MEDS: FAMOTIDINE 20 MG TAB PO SCH ×2 (09:33→20:40)
[2017-08-28] MEDS: LIDOCAINE HCL 5% PATCH T-DERMAL SCH (09:34)
[2017-08-28] MEDS: MAGNESIUM HYDROXIDE SUSP 30 ML CUP PO SCH ×2 (09:34→20:39)
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
[2017-08-28] MEDS: ENOXAPARIN SODIUM 40 MG/0.4 ML SYRINGE SQ SCH (12:27)
[2017-08-28] MEDS: NICOTINE 21 MG/24 HR PATCH T-DERMAL SCH (13:37)
[2017-08-28] MEDS ORDERED: PERI PO (19:42)
[2017-08-28] MEDS ORDERED: MAGN30S PO (19:42)
[2017-08-28] MEDS: REMOVE OLD PATCH T-DERMAL SCH ×2 (20:44)
[2017-08-29] VITALS (7 sets, daily range): BP systolic 127–151; BP diastolic 70–86; PULSE 86–93; RESP 17–18; TEMP 97.7–98.6; O2SAT 94–98
[2017-08-29] MEDS: AMOXICILLIN/CLAVULANATE K 500 MG TAB PO SCH ×3 (05:42→20:45)
[2017-08-29] MEDS: METHOCARBAMOL 500 MG TAB PO SCH ×3 (05:42→20:44)
[2017-08-29] MEDS: LIDOCAINE HCL 5% PATCH T-DERMAL SCH (09:00)
[2017-08-29] MEDS: MAGNESIUM HYDROXIDE SUSP 30 ML CUP PO SCH ×2 (09:00→20:45)
[2017-08-29] MEDS: DOCUSATE SODIUM 50 MG/SENNA 8.6 MG TAB PO SCH ×2 (09:00→20:44)
[2017-08-29] MEDS: LACTULOSE SYRUP 20 GM/30 ML CUP PO SCH (09:00)
[2017-08-29] MEDS: ARTIFICIAL TEARS OPTH SOLN 15 ML BTL EACH EYE SCH ×3 (09:00→17:41)
[2017-08-29] MEDS: MUPIROCIN 2% OINT 1 APPLIC/GM SYR EACH NARE SCH ×2 (09:02→20:45)
[2017-08-29] MEDS: SODIUM CHLORIDE 0.9% FLUSH 10 ML FLUSH IV FLUSH SCH ×2 (09:03→20:45)
[2017-08-29] MEDS: FAMOTIDINE 20 MG TAB PO SCH ×2 (09:04→20:46)
[2017-08-29] MEDS: NICOTINE 21 MG/24 HR PATCH T-DERMAL SCH (09:06)
[2017-08-29] MEDS: fentaNYL 50 MCG/HR PATCH T-DERMAL SCH (09:07)
[2017-08-29] MEDS: REMOVE OLD DURAGESIC (FENTANYL) PATCH T-DERMAL SCH (09:07)
[2017-08-29] MEDS: ACETAMINOPHEN/HYDROcodone 325 MG/7.5 MG TAB PO PRN ×3 (09:15→20:45)
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
[2017-08-29] MEDS: ENOXAPARIN SODIUM 40 MG/0.4 ML SYRINGE SQ SCH (11:55)
[2017-08-29] MEDS: REMOVE OLD PATCH T-DERMAL SCH ×2 (20:46)
[2017-08-29] MEDS: MORPHINE SULFATE 2 MG/ML INJ IV PUSH PRN (23:55)
[2017-08-30 04:53] VITALS: BP 122/74; PULSE 82; RESP 18; TEMP 97.4; O2SAT 95
[2017-08-30] MEDS: AMOXICILLIN/CLAVULANATE K 500 MG TAB PO SCH ×3 (05:43→20:24)
[2017-08-30] MEDS: ACETAMINOPHEN/HYDROcodone 325 MG/7.5 MG TAB PO PRN (05:44)
[2017-08-30] MEDS: METHOCARBAMOL 500 MG TAB PO SCH (05:44)
[2017-08-30 08:00] VITALS: BP 117/78; PULSE 95; RESP 16; TEMP 97.8; O2SAT 94
[2017-08-30] MEDS: ARTIFICIAL TEARS OPTH SOLN 15 ML BTL EACH EYE SCH ×3 (09:00→18:00)
[2017-08-30] MEDS: SODIUM CHLORIDE 0.9% FLUSH 10 ML FLUSH IV FLUSH SCH ×2 (09:00→20:18)
[2017-08-30] MEDS: MUPIROCIN 2% OINT 1 APPLIC/GM SYR EACH NARE SCH ×2 (09:00→20:17)
[2017-08-30] MEDS: LACTULOSE SYRUP 20 GM/30 ML CUP PO SCH (09:00)
[2017-08-30 09:20] VITALS: O2SAT 93
[2017-08-30] MEDS: FAMOTIDINE 20 MG TAB PO SCH ×2 (09:30→20:18)
[2017-08-30] MEDS: DOCUSATE SODIUM 50 MG/SENNA 8.6 MG TAB PO SCH ×2 (09:30→20:18)
[2017-08-30] MEDS: MAGNESIUM HYDROXIDE SUSP 30 ML CUP PO SCH ×2 (09:30→20:18)
[2017-08-30] MEDS: NICOTINE 21 MG/24 HR PATCH T-DERMAL SCH (09:32)
[2017-08-30] MEDS: LIDOCAINE HCL 5% PATCH T-DERMAL SCH (09:37)
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
[2017-08-30] MEDS ORDERED: WALKER WHEELS/F1 MIS (11:38)
[2017-08-30] MEDS: ENOXAPARIN SODIUM 40 MG/0.4 ML SYRINGE SQ SCH (11:42)
[2017-08-30 12:00] VITALS: BP 131/85; PULSE 101; RESP 16; TEMP 98.1; O2SAT 94
[2017-08-30] MEDS ORDERED: METHOCARBAMOL 500 MG TAB PO PRN (12:00)
[2017-08-30 16:00] VITALS: BP 131/82; PULSE 83; RESP 16; TEMP 98.5; O2SAT 92
[2017-08-30 20:00] VITALS: BP 124/86; PULSE 103; RESP 18; TEMP 98.2; O2SAT 96
[2017-08-30] MEDS: BACITRACIN TOP OINT 15 GM TUBE TOPICAL PRN (20:17)
[2017-08-30] MEDS: REMOVE OLD PATCH T-DERMAL SCH ×2 (20:30→20:31)
[2017-08-31] VITALS: BP 127/84; PULSE 94; RESP 18; TEMP 98.3; O2SAT 96
[2017-08-31 04:00] VITALS: BP 122/73; PULSE 78; RESP 18; TEMP 97.6; O2SAT 96
[2017-08-31] MEDS: AMOXICILLIN/CLAVULANATE K 500 MG TAB PO SCH ×3 (05:16→21:40)
[2017-08-31] MEDS: ACETAMINOPHEN/HYDROcodone 325 MG/7.5 MG TAB PO PRN ×2 (05:20→15:45)
[2017-08-31 08:00] VITALS: BP 139/71; PULSE 95; RESP 18; TEMP 97.2; O2SAT 98
[2017-08-31] MEDS: DOCUSATE SODIUM 50 MG/SENNA 8.6 MG TAB PO SCH ×2 (09:00→21:47)
[2017-08-31] MEDS: ARTIFICIAL TEARS OPTH SOLN 15 ML BTL EACH EYE SCH ×3 (09:00→16:51)
[2017-08-31] MEDS: MAGNESIUM HYDROXIDE SUSP 30 ML CUP PO SCH ×2 (09:00→21:41)
[2017-08-31] MEDS: LACTULOSE SYRUP 20 GM/30 ML CUP PO SCH (09:00)
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
[2017-08-31] MEDS: fentaNYL 25 MCG/HR PATCH T-DERMAL SCH (10:08)
[2017-08-31] MEDS: MUPIROCIN 2% OINT 1 APPLIC/GM SYR EACH NARE SCH ×2 (10:09→21:40)
[2017-08-31] MEDS: SODIUM CHLORIDE 0.9% FLUSH 10 ML FLUSH IV FLUSH SCH ×2 (10:09→21:46)
[2017-08-31] MEDS: FAMOTIDINE 20 MG TAB PO SCH ×2 (10:10→21:41)
[2017-08-31] MEDS: NICOTINE 21 MG/24 HR PATCH T-DERMAL SCH (10:10)
[2017-08-31 12:00] VITALS: BP 142/79; PULSE 89; RESP 18; TEMP 97.7; O2SAT 96
[2017-08-31] MEDS: ENOXAPARIN SODIUM 40 MG/0.4 ML SYRINGE SQ SCH (12:03)
[2017-08-31 16:00] VITALS: BP 122/81; PULSE 97; RESP 18; TEMP 98.2; O2SAT 98
[2017-08-31] MEDS: MORPHINE SULFATE 2 MG/ML INJ IV PUSH PRN (16:25)
[2017-08-31 20:30] VITALS: BP 149/83; PULSE 98; RESP 18; TEMP 98.3; O2SAT 95
[2017-08-31] MEDS: REMOVE OLD PATCH T-DERMAL SCH ×2 (21:50)
[2017-09-01] VITALS (7 sets, daily range): BP systolic 119–150; BP diastolic 73–87; PULSE 79–103; RESP 18–20; TEMP 97.3–98.6; O2SAT 96–98
[2017-09-01] MEDS: AMOXICILLIN/CLAVULANATE K 500 MG TAB PO SCH ×3 (05:39→21:10)
[2017-09-01] MEDS: FAMOTIDINE 20 MG TAB PO SCH ×2 (08:36→21:00)
[2017-09-01] MEDS: LACTULOSE SYRUP 20 GM/30 ML CUP PO SCH (08:37)
[2017-09-01] MEDS: MAGNESIUM HYDROXIDE SUSP 30 ML CUP PO SCH ×2 (08:37→21:00)
[2017-09-01] MEDS: NICOTINE 21 MG/24 HR PATCH T-DERMAL SCH (08:37)
[2017-09-01] MEDS: SODIUM CHLORIDE 0.9% FLUSH 10 ML FLUSH IV FLUSH SCH ×2 (08:37→21:15)
[2017-09-01] MEDS: DOCUSATE SODIUM 50 MG/SENNA 8.6 MG TAB PO SCH ×2 (08:38→21:00)
[2017-09-01] MEDS: MUPIROCIN 2% OINT 1 APPLIC/GM SYR EACH NARE SCH ×2 (08:38→21:00)
[2017-09-01] MEDS: ARTIFICIAL TEARS OPTH SOLN 15 ML BTL EACH EYE SCH ×3 (08:38→18:00)
[2017-09-01] MEDS: ACETAMINOPHEN/HYDROcodone 325 MG/7.5 MG TAB PO PRN ×3 (08:43→22:49)
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
--- NOTE | 2017-09-01 11:46 | RADRPT ---
EXAM DATE/TIME: 09/01/2017 11:16 [facility] COMPARISON: CHEST SINGLE AP, August 22, 2017, 4:08. CHEST SINGLE AP, August 27, 2017, 6:16. INDICATIONS : Right shoulder pain, trauma alert. MEDICAL HISTORY : None. SURGICAL HISTORY : None. ENCOUNTER: Subsequent ACUITY: 2 weeks PAIN SCORE: 8/10 LOCATION: Right shoulder FINDINGS: The distal clavicle is superiorly positioned in relation to the acromion likely secondary to grade 2 acromioclavicular separation. The acromioclavicular distance is not widened. No fracture seen. The gl enohumeral joint alignment. Calcified lymph nodes are seen in the right hilum and subcarinal regions. CONCLUSION: Grade 2 acromioclavicular separation. Levi Carrero MD on September 01, 2017 at 11:41 Board Certified Radiologist. This report was verified electronically.
[2017-09-01] MEDS: ENOXAPARIN SODIUM 40 MG/0.4 ML SYRINGE SQ SCH (12:03)
[2017-09-01] MEDS: REMOVE OLD PATCH T-DERMAL SCH ×2 (21:00)
[2017-09-01] MEDS: BACITRACIN TOP OINT 15 GM TUBE TOPICAL PRN (21:14)
[2017-09-01] MEDS: MORPHINE SULFATE 2 MG/ML INJ IV PUSH PRN (22:49)
[2017-09-02] VITALS: BP 137/78; PULSE 92; RESP 18; TEMP 98.4; O2SAT 98
[2017-09-02 04:00] VITALS: BP 138/83; PULSE 84; RESP 18; TEMP 97.6; O2SAT 96
[2017-09-02] MEDS: AMOXICILLIN/CLAVULANATE K 500 MG TAB PO SCH (06:01)
[2017-09-02 07:23] LABS: AUTOMATED NEUTROPHIL # 10.5 TH/MM3 (1.8-7.7); BASOPHIL # 0.2 TH/MM3 (0-0.2); BASOPHIL % 1.5 % (0.0-2.0); EOSINOPHIL # 0.5 TH/MM3 (0-0.4); EOSINOPHIL % 3.5 % (0.0-4.0); HEMOGLOBIN 15.2 GM/DL (13.0-17.0); LYMPH % 19.7 % (9.0-44.0); LYMPHOCYTE # 3.1 TH/MM3 (1.0-4.8); MEAN CELL VOLUME 94.3 FL (80.0-100.0); MEAN CORPUSCULAR HEMOGLOBIN 32.6 PG (27.0-34.0); MEAN CORPUSCULAR HGB CONC 34.6 % (32.0-36.0); MEAN PLATELET VOLUME 8.3 FL (7.0-11.0); MONO % 7.5 % (0.0-8.0); MONOCYTE # 1.2 TH/MM3 (0-0.9); NEUT % 67.8 % (16.0-70.0); PLATELET COUNT 891 TH/MM3 (150-450); RED BLOOD COUNT 4.67 MIL/MM3 (4.50-5.90); RED CELL DISTRIBUTION WIDTH 13.7 % (11.6-17.2); WHITE BLOOD COUNT 15.6 TH/MM3 (4.0-11.0)
[2017-09-02 08:00] VITALS: BP 138/88; PULSE 88; RESP 18; TEMP 98.2; O2SAT 96
[2017-09-02 08:02] LABS: BICARBONATE 29.7 MEQ/L (21.0-32.0); CALCIUM 9.7 MG/DL (8.5-10.1); CREATININE 0.99 MG/DL (0.60-1.30)
[2017-09-02] MEDS: NICOTINE 21 MG/24 HR PATCH T-DERMAL SCH (09:40)
[2017-09-02] MEDS: ARTIFICIAL TEARS OPTH SOLN 15 ML BTL EACH EYE SCH ×3 (09:40→18:00)
[2017-09-02] MEDS: LACTULOSE SYRUP 20 GM/30 ML CUP PO SCH (09:41)
[2017-09-02] MEDS: MAGNESIUM HYDROXIDE SUSP 30 ML CUP PO SCH ×2 (09:41→21:00)
[2017-09-02] MEDS: DOCUSATE SODIUM 50 MG/SENNA 8.6 MG TAB PO SCH ×2 (09:41→21:57)
[2017-09-02] MEDS: FAMOTIDINE 20 MG TAB PO SCH ×2 (09:41→21:57)
[2017-09-02] MEDS: SODIUM CHLORIDE 0.9% FLUSH 10 ML FLUSH IV FLUSH SCH ×2 (09:42→21:58)
[2017-09-02] MEDS: BACITRACIN TOP OINT 15 GM TUBE TOPICAL PRN (09:42)
[2017-09-02 12:00] VITALS: BP 135/74; PULSE 98; RESP 18; TEMP 98.6; O2SAT 98
[2017-09-02] MEDS ORDERED: HYDR-3516 PO (12:54)
[2017-09-02] MEDS ORDERED: MENINGOCOCCAL CONJUGATE VACCINE 0.5 ML VIAL IM ONE (13:00)
[2017-09-02] MEDS ORDERED: PNEUMOCOCCAL POLYVALENT INJ 25 MCG/0.5 ML SYR IM ONE (13:00)
[2017-09-02] MEDS ORDERED: HAEMOPH B POLYSACCH CONJ VACCINE 0.5 ML VIAL IM ONE (13:00)
[2017-09-02] MEDS: ENOXAPARIN SODIUM 40 MG/0.4 ML SYRINGE SQ SCH (13:55)
[2017-09-02] MEDS: ACETAMINOPHEN/HYDROcodone 325 MG/7.5 MG TAB PO PRN ×2 (13:57→21:57)
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
--- NOTE | 2017-09-02 16:25 | RADRPT ---
EXAM DATE/TIME: 09/02/2017 15:57 [facility] COMPARISON: No previous studies available for comparison. INDICATIONS : Pain, followup right knee. MEDICAL HISTORY : None. SURGICAL HISTORY : None. ENCOUNTER: Subsequent ACUITY: 1 week PAIN SCORE: 0/10 LOCATION: Bilateral chest FINDINGS: No definite fractures, or dislocations are identified. No definite lytic or sclerotic lesion is seen . Slight tricompartment osteoarthritis is seen. Large joint effusion is seen. CONCLUSION: Large joint effusion and slight osteoarthritis. Zakia Wing MD on September 02, 2017 at 16:22 Board Certified Radiologist. This report was verified electronically.
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
[2017-09-02 20:00] VITALS: BP 113/77; PULSE 92; RESP 18; TEMP 98.2; O2SAT 98
[2017-09-02] MEDS: REMOVE OLD PATCH T-DERMAL SCH ×2 (21:00)
[2017-09-03] VITALS: BP 110/76; PULSE 86; RESP 18; TEMP 98; O2SAT 97
[2017-09-03 04:00] VITALS: BP 112/76; PULSE 84; RESP 18; TEMP 98.2; O2SAT 97
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
[2017-09-03 08:00] VITALS: BP 147/85; PULSE 82; RESP 19; TEMP 97.9; O2SAT 98
[2017-09-03] MEDS ORDERED: REMOVE OLD DURAGESIC (FENTANYL) PATCH T-DERMAL SCH (08:00)
[2017-09-03] MEDS: LACTULOSE SYRUP 20 GM/30 ML CUP PO SCH (09:00)
[2017-09-03] MEDS: ARTIFICIAL TEARS OPTH SOLN 15 ML BTL EACH EYE SCH (09:00)
[2017-09-03] MEDS: SODIUM CHLORIDE 0.9% FLUSH 10 ML FLUSH IV FLUSH SCH (09:00)
[2017-09-03] MEDS: DOCUSATE SODIUM 50 MG/SENNA 8.6 MG TAB PO SCH (09:00)
[2017-09-03] MEDS: MAGNESIUM HYDROXIDE SUSP 30 ML CUP PO SCH (09:00)
[2017-09-03] MEDS: NICOTINE 21 MG/24 HR PATCH T-DERMAL SCH (09:00)
[2017-09-03] MEDS: fentaNYL 25 MCG/HR PATCH T-DERMAL SCH (09:35)
[2017-09-03] MEDS: ACETAMINOPHEN/HYDROcodone 325 MG/7.5 MG TAB PO PRN (09:47)
[2017-09-03] MEDS: FAMOTIDINE 20 MG TAB PO SCH (09:47)
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
== END 2017-09-03 11:24 | disposition home or self-care (01) | DRG 958 ==
LOC: NEPI 19:51 → EDBD 21:49 → NEDA 21:49 → N03A 23:23 → N05A 08-24 12:02
PROVIDERS: ADMIT Surgery; ATTEND Surgery
PROC: 0HQ1XZZ Repair Face Skin, External Approach (ICD-10-PCS; 2017-08-20)
PROC: 0WJP0ZZ Inspection of Gastrointestinal Tract, Open Approach (ICD-10-PCS; 2017-08-21)
PROC: 0WJJ0ZZ Inspection of Pelvic Cavity, Open Approach (ICD-10-PCS; 2017-08-21)
PROC: 5A1945Z Respiratory Ventilation, 24-96 Consecutive Hours (ICD-10-PCS; 2017-08-21)
PROC: 30233K1 Transfusion of Nonautologous Frozen Plasma into Peripheral Vein, Percutaneous Approach (ICD-10-PCS; 2017-08-21)
PROC: 30233N1 Transfusion of Nonautologous Red Blood Cells into Peripheral Vein, Percutaneous Approach (ICD-10-PCS; 2017-08-21)
PROC: 07TP0ZZ Resection of Spleen, Open Approach (ICD-10-PCS; principal; 2017-08-21 01:14)
DX: S36.032A Major laceration of spleen, initial encounter (principal); S06.369A Traumatic hemorrhage of cerebrum, unspecified, with loss of consciousness of unspecified duration, initial encounter; S02.0XXA Fracture of vault of skull, initial encounter for closed fracture; S32.810A Multiple fractures of pelvis with stable disruption of pelvic ring, initial encounter for closed fracture; S27.1XXA Traumatic hemothorax, initial encounter; S27.321A Contusion of lung, unilateral, initial encounter; I95.9 Hypotension, unspecified; E87.70 Fluid overload, unspecified; S22.32XA Fracture of one rib, left side, initial encounter for closed fracture; S82.001A Unspecified fracture of right patella, initial encounter for closed fracture; S02.82XA Fracture of other specified skull and facial bones, left side, initial encounter for closed fracture; H53.8 Other visual disturbances; S36.09XA Other injury of spleen, initial encounter; E86.1 Hypovolemia; S62.502A Fracture of unspecified phalanx of left thumb, initial encounter for closed fracture; V09.20XA Pedestrian injured in traffic accident involving unspecified motor vehicles, initial encounter; Y92.488 Other paved roadways as the place of occurrence of the external cause; Y93.89 Activity, other specified; S01.81XA Laceration without foreign body of other part of head, initial encounter; F17.210 Nicotine dependence, cigarettes, uncomplicated; R59.0 Localized enlarged lymph nodes; Y93.01 Activity, walking, marching and hiking; M25.511 Pain in right shoulder; F10.10 Alcohol abuse, uncomplicated; S43.101A Unspecified dislocation of right acromioclavicular joint, initial encounter; Y90.7 Blood alcohol level of 200-239 mg/100 ml; Z23 Encounter for immunization
CPT/HCPCS: 12052; 36430; 36600; 70450; 70486; 71010; 71260; 72125; 72170; 73020; 73030; 73140; 73200; 73560; 73564; 74177; 80048; 80053; 80307; 81001; 82435; 82565; 82805; 82947; 84132; 84295; 84520; 85025; 85027; 85384; 85610; 85730; 86850; 86900; 86901; 86920; 86927; 87086; 87641; 88305; 88307; 90471; 90715; 90732; 90734; 94002; 94150; 94640; 94664; 94667; 94668; 96374; 96375; 99291; G0390; J0295; J0330; J0690; J1170; J1644; J1650; J1940; J2270; J2370; J2405; J3010; J3411; J7030; J7040; J7613; L1830; L1845; L3808; P9016; P9017; Q9967

== ENCOUNTER 2017-09-06 22:48 | Emergency (ER) | payer SELFPAY ==
[~2017-09-06 22:48] MED LIST: HYDR-3516 PO; MAGN30S PO; PERI PO; WALKER WHEELS/F1 MIS
[2017-09-06 23:03] VITALS: BP 138/81; PULSE 99; RESP 18; TEMP 98.5; O2SAT 98
--- NOTE | 2017-09-06 23:39 | RADRPT ---
EXAM DATE/TIME: 09/06/2017 23:20 [facility] COMPARISON: CT ABDOMEN & PELVIS W CONTRAST, August 20, 2017, 20:06. PELVIS AP ONLY, August 20, 2017, 19:53. INDICATIONS : Pt was walking with walker and fell onto left hip. MEDICAL HISTORY : None. SURGICAL HISTORY : None. ENCOUNTER: Initial ACUITY: 1 day PAIN SCORE: 6/10 LOCATION: Right Hip FINDINGS: 3 views left hip and pelvis. Fractures of pubic rami are again seen bilaterally. No change in alignme nt when compared to the prior radiographs of 08/20/2017. Left-sided sacral fracture also noted and co nfirmed on images of prior CT. Hip joint on the within normal limits. Proximal femurs are intact. CONCLUSION: Bilateral pubic rami fractures. Alignment unchanged. Nondisplaced left-sided sacral fracture also not ed. Carlos Conner MD on September 06, 2017 at 23:33 Board Certified Radiologist. This report was verified electronically.
[2017-09-07] MEDS ORDERED: traMADol HCL 50 MG TAB PO ONE
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
[2017-09-07] MEDS ORDERED: IBUP-232 PO (01:03)
== END 2017-09-07 01:14 | disposition home or self-care (01) ==
LOC: NEPE 22:48
DX: S32.502D Unspecified fracture of left pubis, subsequent encounter for fracture with routine healing (principal); S32.501D Unspecified fracture of right pubis, subsequent encounter for fracture with routine healing; S32.10XD Unspecified fracture of sacrum, subsequent encounter for fracture with routine healing; W19.XXXD Unspecified fall, subsequent encounter; Z72.0 Tobacco use
CPT/HCPCS: 73502; 99283